=== PATIENT | female | born 1975 | race Two or more races ===

== ENCOUNTER 2016-12-07 07:46 | Emergency (ER) | payer OTHER ==
[~2016-12-07] VITALS: Ht 154.9 cm; Wt 77.1 kg
[2016-12-07] MEDS ORDERED: SODIUM CHLORIDE 0.9% 1,000 ML IV ONE (08:09)
[2016-12-07] MEDS ORDERED: IPRATROPIUM BROM 0.5 MG/2.5ML INH SOL NEB ONE (08:15)
[2016-12-07] MEDS ORDERED: ALBUTEROL SULF 2.5 MG/0.5ML(0.5%) NEB SOLN NEB ONE ×2 (08:15→10:30)
[2016-12-07] MEDS ORDERED: methylPREDNISolone SOD SUCC 125 MG/2 ML VL IV ONE (08:15)
[2016-12-07 08:35] LABS: Basophils # (auto) 0.1 uL; Basophils % (auto) 0.9 % (0.0-2.0); Eosinophils # (auto) 0.6 uL; Eosinophils % (auto) 8.5 % (0.0-7.0); Hematocrit 38.8 % (36.0-46.0); Hemoglobin 13.2 g/dL (12.2-16.2); Lymphocytes # (auto) 2.6 uL; Lymphocytes % (auto) 38.9 % (10.0-50.0); Mean Corpuscular Volume 85.3 fL (80.0-100.0); Mean Platelet Volume 7.1 fL (6.9-10.8); Monocytes # (auto) 0.3 uL; Monocytes % (auto) 4.9 % (0.0-12.0); Neutrophils # (auto) 3.1 uL; Neutrophils % (auto) 46.8 % (37.0-80.0); Nucleated Red Blood Cells % 0.1 %; Platelet Count (auto) 264 10^3/uL (140-450); Red Cell Distribution Width 14.1 % (11.8-14.3); White Blood Cell 6.7 10^3/uL (4.4-10.8)
[2016-12-07 08:49] LABS: Albumin 3.9 g/dL (3.4-5.0); Anion Gap 9 (5-15); Calcium 9.2 mg/dL (8.5-10.1); Carbon Dioxide 22 mmol/L (21-32); Chloride 112 mmol/L (98-107); Glucose 89 mg/dL (74-106); Potassium 3.7 mmol/L (3.5-5.1); Sodium 143 mmol/L (136-145)
[2016-12-07 08:54] LABS: Alkaline Phosphatase 162 U/L (45-117); Aspartate Aminotransferase 18 U/L (15-37); Bilirubin, Total 0.3 mg/dL (0.2-1.0); Blood Urea Nitrogen 8 mg/dL (7-18); GFR African American 186 mL/min; GFR Non-African American 154 mL/min; Total Protein 7.5 g/dL (6.4-8.2)
[2016-12-07 10:49] LABS: Urine Bilirubin Negative (Negative); Urine Blood Negative /uL (Negative); Urine Color Yellow (Yellow); Urine Glucose Normal (Normal); Urine Ketone Negative (Negative); Urine Nitrite Negative (Negative); Urine RBC <1 /hpf (0 - 4); Urine Squamous Epithelial Cell FEW /hpf (<5); Urine Urobilinogen Normal (Negative)
[2016-12-07 11:11] VITALS: BP 123/70
== END 2016-12-07 11:50 | disposition home or self-care (01) ==
LOC: ER 07:46
DX: J45.901 Unspecified asthma with (acute) exacerbation (principal)
CPT/HCPCS: 36415; 71010; 80053; 81001; 84484; 85025; 94640; 94644; 96361; 96374; 99285; J2930; J7030

== ENCOUNTER 2018-05-13 14:48 | Emergency (ER) | payer BC, OTHER ==
[~2018-05-13] VITALS: Ht 154.9 cm; Wt 83.9 kg
[2018-05-13] MEDS ORDERED: methylPREDNISolone SOD SUCC 125 MG/2 ML VL IM ONE (15:00)
[2018-05-13] MEDS ORDERED: IPRATROPIUM BROM 0.5 MG/2.5ML INH SOL NEB ONE (15:00)
[2018-05-13] MEDS ORDERED: ALBUTEROL SULF 2.5 MG/0.5ML(0.5%) NEB SOLN NEB ONE (15:00)
[2018-05-13 15:08] VITALS: BP 138/74
== END 2018-05-13 16:15 | disposition home or self-care (01) ==
LOC: ER 14:48
DX: J45.909 Unspecified asthma, uncomplicated (principal); Z90.710 Acquired absence of both cervix and uterus
CPT/HCPCS: 94640; 96372; 99283; J2930; J7611; J7644